=== PATIENT | female | born 1980 | race African-American/Black ===

== ENCOUNTER → 2017-01-11 | Outpatient (CLI) | payer BC ==
--- NOTE | 2017-01-11 12:26 | PCVCIMAG ---
APPROVED REPORT Study performed: 01/11/2017 11:02:51 EXAM: Comprehensive 2D, Doppler, and color-flow Echocardiogram Status: routine BSA: 2.17 HR: 68 bpmBP: 160/110 mmHg Rhythm: NSR Other Information Study Quality: Technically Limited Echo Enhancing Agent Indication: Endocardial border delineation Agent(s) / Amount(s) Used: Lumason cc 2D Dimensions IVSd: 11.47 (7-11mm)LVOT Diam: 21.91 (18-24mm) LVDd: 58.29 mm PWd: 13.30 (7-11mm)Ascending Ao: 32.95 (22-36mm) LVDs: 39.53 (25-40mm) Left Atrium: 38.13 (27-40mm) Aortic Root: 28.64 mm LV Single Plane 4CH: 31.97 % Volumes Left Atrial Volume (Systole) Single Plane 4CH: 54.11 mL Aortic Valve AoV Peak Pierre.: 1.75 m/s AO Peak Gr.: 12.25 mmHgLVOT Max P.06 mmHg LVOT Max V: 0.87 m/s VERONIQUE Vmax: 1.88 cm2 Mitral Valve E/A Ratio: 0.9 MV Decel. Time: 251.47 ms MV E Max Pierre.: 0.68 m/s MV A Pierre.: 0.79 m/s IVRT: 114.19 ms Pulmonary Valve PV Peak Gr.: 2.23 mmHg Pulmonary Vein P Vein S: 0.44 m/sP Vein A: 0.25 m/s P Vein D: 0.48 m/sP Vein A Dur.: 38.1 msec P Vein S/D Ratio: 0.92 Left Ventricle Left ventricle is mildly dilated. There is normal LV segmental wall motion. There is normal left ventricular wall thickness. Left ventricular systolic function is mild to moderately decreased. LVEF is 40-45%. This study is not technically sufficient to allow evaluation of the LV diastolic function. Right Ventricle The right ventricle is normal size. The right ventricular systolic function is normal. Atria The left atrium size is normal. The right atrium size is normal. Aortic Valve The aortic valve is normal in structure. No aortic regurgitation is present. There is no aortic valvular stenosis. Mitral Valve The mitral valve is normal in structure. There is no mitral valve regurgitation noted. No evidence of mitral valve stenosis. Tricuspid Valve The tricuspid valve is normal in structure. There is no tricuspid valve regurgitation noted. Pulmonic Valve The pulmonary valve is normal in structure. There is no pulmonic valvular regurgitation. Great Vessels The aortic root is normal in size. IVC is normal in size and collapses with >50% inspiration Pericardium There is no pericardial effusion. <Conclusion> Technically difficult study Left ventricle is mildly dilated. Left ventricular systolic function is mild to moderately decreased. The right ventricle is normal size. The aortic valve is normal in structure. The mitral valve is normal in structure. The tricuspid valve is normal in structure. There is no pericardial effusion.
== END | disposition home or self-care (01) ==
LOC: PCVCIMAG 10:44
PROVIDERS: ATTEND Internal Medicine Cardiovascular Disease
DX: I51.7 Cardiomegaly (principal); I42.9 Cardiomyopathy, unspecified; I10 Essential (primary) hypertension; Z79.899 Other long term (current) drug therapy
CPT/HCPCS: 36415; 93005; 93306; G0463

== ENCOUNTER → 2018-10-02 | Outpatient (CLI) | payer BC ==
--- NOTE | 2018-10-02 12:19 | PCVCIMAG ---
APPROVED REPORT Study performed: 10/02/2018 08:43:45 EXAM: Comprehensive 2D, Doppler, and color-flow Echocardiogram Patient Location: Echo lab Status: routine BSA: 2.07 HR: 76 bpmBP: 150/86 mmHg Rhythm: NSR Other Information Study Quality: Adequate Risk Factors: Cardiac Risk Factors: HTN Indications Dyspnea non ischemic cardiomyopathy 2D Dimensions IVSd: 12.72 (7-11mm) LVDd: 49.19 mm PWd: 12.65 (7-11mm)Ascending Ao: 38.62 (22-36mm) LVDs: 37.23 (25-40mm) Left Atrium: 37.80 (27-40mm) Aortic Root: 35.65 mm LV Single Plane 4CH: 46.39 % LV Single Plane 2CH: 55.35 % Biplane EF: 51.1 % Volumes Left Atrial Volume (Systole) Single Plane 4CH: 88.58 mLSingle Plane 2CH: 82.81 mL LA ESV Index: 42.00 mL/m2 Aortic Valve AoV Peak Pierre.: 1.68 m/s AO Peak Gr.: 11.29 mmHgLVOT Max P.10 mmHg LVOT Max V: 1.01 m/s Mitral Valve E/A Ratio: 1.5 MV Decel. Time: 204.69 ms MV E Max Pierre.: 0.74 m/s MV A Pierre.: 0.48 m/s IVRT: 79.58 ms Pulmonary Valve PV Peak Pierre.: 1.11 m/sPV Peak Gr.: 4.94 mmHg Pulmonary Vein P Vein S: 0.46 m/sP Vein A: 0.27 m/s P Vein D: 0.44 m/sP Vein A Dur.: 134.9 msec P Vein S/D Ratio: 1.05 Tricuspid Valve TR Peak Pierre.: 2.30 m/s TR Peak Gr.: 21.13 mmHg TV Vmax: 0.47 m/s Left Ventricle The left ventricle is normal size. There is normal LV segmental wall motion. Mild concentric left ventricular hypertrophy. The overall left ventricular systolic function appears within the lower limits of normal. LVEF is 50-55%. The left ventricular diastolic function is normal. Right Ventricle The right ventricle is normal size. The right ventricular systolic function is normal. Atria Left atrium is mildly dilated. Right atrium is mildly dilated. Aortic Valve The aortic valve is normal in structure. Trace aortic regurgitation. There is no aortic valvular stenosis. Mitral Valve The mitral valve is normal in structure. There is no mitral valve regurgitation noted. No evidence of mitral valve stenosis. Tricuspid Valve The tricuspid valve is normal in structure. Trace tricuspid regurgitation with PAP of 28 mmHg. Pulmonic Valve The pulmonary valve is normal in structure. Trace pulmonic regurgitation. Great Vessels The aortic root is normal in size. The ascending aorta is borderline dilated to 3.8 cm. IVC is normal in size and collapses >50% with inspiration. Pericardium There is no pericardial effusion. <Conclusion> The left ventricle is normal size. Mild concentric left ventricular hypertrophy. The overall left ventricular systolic function appears within the lower limits of normal. The left ventricular diastolic function is normal. The right ventricle is normal size. Left atrium is mildly dilated. Right atrium is mildly dilated. Trace aortic regurgitation. There is no mitral valve regurgitation noted. Trace tricuspid regurgitation with PAP of 28 mmHg.
== END | disposition home or self-care (01) ==
LOC: PCVCIMAG 08:56
PROVIDERS: ATTEND Internal Medicine Cardiovascular Disease
DX: R06.09 Other forms of dyspnea (principal); I51.7 Cardiomegaly
CPT/HCPCS: 93306